=== PATIENT | male | born 1930 | race Caucasian/White ===

== ENCOUNTER 2016-10-27 17:11 | Emergency (ER) | payer MEDICARE ==
--- NOTE | 2016-10-27 17:46 | Emergency Department Record ---
History of Present Illness - General Chief Complaint: Back Pain/Injury Stated Complaint: BACK PAIN Time Seen by Provider: 10/27/16 17:28 Source: Patient, Family Mode of Arrival: Ambulatory Limitations: No limitations - History of Present Illness Initial Comments: 86 yo male presents after a fall one month ago. He was trying get the cat and slipped falling backward. He has had mid lower back pain since then. He has pain with ROM, certain positions, certain movements. No weakness, numbness or tingling. The pain started mild the first day then gradually increased over the month. He has not seen his doctor for this injury. NO abdominal pain. No hematuria. No other injuries. MD Complaint: Back pain, Back injury, Fall -: Month(s) (1) Place: Home Radiation: None Severity: Moderate Quality: Aching Consistency: Constant Improves With: Immobilization Worsens With: Movement, Walking Context: Fall Associated Symptoms: Denies other symptoms - Related Data Home Medications Medication Instructions Recorded Confirmed Last Taken Aspirin [Aspir-Low] 81 mg PO DAILY 10/27/16 10/27/16 Unknown Nitroglycerin [Nitrostat] 0.4 mg SL ASDIR 10/27/16 10/27/16 10/25/16 Pravastatin Sodium [Pravachol] 40 mg PO ASDIR 10/27/16 10/27/16 10/26/16 Previous Rx's Medication Instructions Recorded Hydrocodone/Acetaminophen [Hume 1 each PO Q8H #20 tablet 10/27/16 5-325 Tablet] Lidocaine Patch [Lidoderm] 1 ea TOP Q12H #14 patch 10/27/16 Tramadol HCl 50 mg PO BID #25 tab 10/27/16 Allergies Allergy/AdvReac Type Severity Reaction Status Date / Time No Known Drug Allergies Allergy Unverified 08/07/16 15:03 Review of Systems Constitutional: Denies: Chills, Fever, Malaise, Weakness Eyes: Denies: Eye discharge, Eye pain, Photophobia, Vision change ENT: Denies: Congestion, Throat pain Respiratory: Denies: Cough, Dyspnea, Hemoptysis, Stridor, Wheezes Cardiovascular: Denies: Chest pain, Palpitations, Syncope Endocrine: Denies: Fatigue Gastrointestinal: Denies: Abdominal pain, Diarrhea, Nausea, Vomiting Genitourinary: Denies: Dysuria, Frequency, Hematuria Musculoskeletal: Reports: As per HPI, Back pain. Denies: Myalgia, Neck pain Skin: Denies: Bruising, Change in color Neurological: Denies: Abnormal gait, Headache, Numbness, Paresthesias, Tingling , Weakness Psychiatric: Denies: Anxiety Hematological/Lymphatic: Denies: Anemia, Blood Clots, Easy bleeding, Easy bruising, Swollen glands Physical Exam - General General Appearance: Alert, Oriented x3, Cooperative, No acute distress Limitations: No limitations - Head Head exam: Normal inspection - Eye Eye exam: Normal appearance, PERRL - ENT ENT exam: Normal exam Ear exam: Normal external inspection Nasal Exam: Normal inspection Mouth exam: Normal external inspection - Neck Neck exam: Normal inspection, Full ROM. negative: Tenderness - Respiratory Respiratory exam: Normal lung sounds bilaterally. negative: Chest wall tenderness, Respiratory distress - Cardiovascular Cardiovascular Exam: Regular rate, Normal rhythm, Normal heart sounds - GI/Abdominal GI/Abdominal exam: Soft. negative: Guarding, Rebound, Tenderness - Rectal Rectal exam: Deferred - exam: Deferred - Extremities Extremities exam: Normal inspection, Full ROM, Normal capillary refill. negative: Pedal edema, Tenderness Image of Full Body: 1 - tender across the lower thoracic, upper lumbar area, normal inspection, no stepoff - Back Back exam: Reports: Normal inspection, CVA tenderness (R), CVA tenderness (L), Muscle spasm, Paraspinal tenderness, Tenderness, Vertebral tenderness (upper lumbar, lower thoracic tenderness). Denies: Rash noted - Neurological Neurological exam: Alert, Normal gait, Oriented X3, Other (Normal gait). negative: Abnormal gait, Motor sensory deficit - Psychiatric Psychiatric exam: Normal affect, Normal mood Course - Reevaluation(s) Reevaluation #1: The CT scan was reviewed Bilateral intrarenal stones No acute process Degenerative changes throughout the spine No acute signs of fracture. Possibly old L1 degenerative changes or ant. endplate compression that does not appear acute per the radiologist 10/27/16 18:49 Reevaluation #2: We discussed the findings I recommended close follow up with the PCP and possible outpatient MRI if the pain persists 10/27/16 18:51 Disposition Disposition: Discharge Clinical Impression: Back strain Qualifiers: Encounter type: initial encounter Qualified Code(s): S39.012A - Strain of muscle, fascia and tendon of lower back, initial encounter Disposition: Home, Self-Care Condition: (1) Good Instructions: Low Back Strain (ED) Additional Instructions: Call your doctor tomorrow for close follow up If your pain continues you may require an MRI of your back Prescriptions: Hydrocodone/Acetaminophen [Hume 5-325 Tablet] 1 each PO Q8H #20 tablet Lidocaine Patch [Lidoderm] 1 ea TOP Q12H #14 patch Tramadol HCl 50 mg PO BID #25 tab Forms: Patient Portal Access Time of Disposition: 18:55 Quality - Quality Measures Quality Measures: N/A - Blood Pressure Screening View Details: Yes Blood Pressure Classification: Pre-Hypertensive BP Reading Systolic Measurement: 148 Diastolic Measurement: 83 Screening for High Blood Pressure: < Pre-Hypertensive BP, F/U Documented > [ [id number]] Pre-Hypertensive Follow-up Interventions: Referral to alternative/primary care provider.
[2016-10-27] MEDS: LIDOCAINE 5% PATCH TOP ONE (19:00)
--- NOTE | 2016-10-28 14:32 | CT SCAN REPORT ---
EXAM: CT OF THE ABDOMEN AND PELVIS WITHOUT CONTRAST HISTORY: BACK PAIN FOR THIRTY DAYS. TECHNIQUE: CT of the abdomen and pelvis was performed without oral or IV contrast. This limits evaluation of bowel and solid visceral organs. Comparison: None. FINDINGS: Limited evaluation of the lung bases shows atheromatous changes. The osseous structures are grossly intact. Limited evaluation of the liver, spleen, adrenal glands, and pancreas is unremarkable. The gallbladder is present. Nonobstructing renal calculi are noted bilaterally. There is no hydronephrosis or obstructing calculus. Large amount of stool in the colon. Normal appendix. Sigmoid diverticulosis without CT evidence for diverticulitis. Enlargement of the prostate. Correlate with PSA levels. The urinary bladder is not distended limiting its evaluation. No free air or free fluid. Moderate atheromatous change. IMPRESSION: 1. NONOBSTRUCTING RENAL CALCULI BILATERALLY. NO OBSTRUCTING CALCULUS OR HYDRONEPHROSIS. 2. ENLARGEMENT OF THE PROSTATE. CORRELATE WITH PSA LEVELS. 3. SIGMOID DIVERTICULOSIS. NO CT EVIDENCE FOR DIVERTICULITIS. 4. ATHEROMATOUS CHANGE. JOB NUMBER: [id number] [facility]
== END 2016-10-27 19:10 | disposition home or self-care (01) ==
LOC: ER 17:11
DX: S39.012A Strain of muscle, fascia and tendon of lower back, initial encounter (principal); W01.0XXA Fall on same level from slipping, tripping and stumbling without subsequent striking against object, initial encounter; Y92.009 Unspecified place in unspecified non-institutional (private) residence as the place of occurrence of the external cause
CPT/HCPCS: 74176; 99283